=== PATIENT | male | born 1980 | race Two or more races ===

== ENCOUNTER 2017-04-23 11:15 | Emergency (ER) | payer MEDICAID ==
[~2017-04-23] VITALS: Ht 172.7 cm; Wt 65.8 kg
[2017-04-23 11:15] VITALS: BP 126/97
[2017-04-23] MEDS ORDERED: IBUPROFEN 400 MG TABLET ONE (11:26)
[2017-04-23] MEDS ORDERED: IBUPROFEN 400 MG TABLET PO ONE (11:30)
--- NOTE | 2017-04-23 11:41 | NUR ---
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
== END 2017-04-23 12:07 | disposition home or self-care (01) ==
LOC: ER 11:19
DX: S29.011A Strain of muscle and tendon of front wall of thorax, initial encounter (principal); X58.XXXA Exposure to other specified factors, initial encounter; Y93.89 Activity, other specified; Y92.89 Other specified places as the place of occurrence of the external cause; Y99.9 Unspecified external cause status
CPT/HCPCS: 71010-TC; A4606; Z7610

== ENCOUNTER 2017-04-26 16:55 | Emergency (ER) | payer MEDICAID ==
[~2017-04-26] VITALS: Ht 172.7 cm; Wt 65.8 kg
--- NOTE | 2017-04-26 17:00 | NUR ---
PRESENTS SELF TO ED CHEST WALL PAIN X 2 DAYS,, 04/18, NON RADIATING. PATIENT APPEARS IN NO APPRENT DISTRESS, RESPIRATION EVEN AND UNLABORED. SKIN IS WARM TO TOUCH AND NON DIAPHORETIC. AFEBRILE. GOWNED AND PLACED PT ON TELE MONITOR, PENDING MD ENRIQUE
[2017-04-26] MEDS ORDERED: ACETAMINOPHEN 650 MG/20.3 ML UDC PO STA (17:20)
[2017-04-26] MEDS ORDERED: FAMOTIDINE (20 MG) 20 MG TABLET PO STA (17:20)
[2017-04-26] MEDS ORDERED: ACETAMINOPHEN 325 MG TABLET ONE (17:24)
[2017-04-26] MEDS ORDERED: FAMOTIDINE (20 MG) 20 MG TABLET ONE (17:25)
--- NOTE | 2017-04-26 17:27 | NUR ---
MEDICATED PATIENT ORDERED
--- NOTE | 2017-04-26 17:29 | NUR ---
[facility] [employer] AT FOR BLOOD DRAW
[2017-04-26 18:01] VITALS: BP 138/80
--- NOTE | 2017-04-26 18:01 | NUR ---
Patient discharged to home in stable condition. Written and verbal after care instructions given. Patient verbalizes understanding of instruction.
== END 2017-04-26 18:02 | disposition home or self-care (01) ==
LOC: ER 16:57
DX: R07.89 Other chest pain (principal); K21.9 Gastro-esophageal reflux disease without esophagitis
CPT/HCPCS: 36415; 84484-TC; A4606; Z7610